=== PATIENT | male | born 1955 | race African-American/Black ===

== ENCOUNTER 2018-03-17 16:48 | Emergency (ER) | payer OTHER ==
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
--- NOTE | 2018-03-17 17:57 | RAD ---
CERVICAL SPINE THREE VIEWS: COMPARISON: None. FINDINGS: There is no prevertebral soft tissue swelling. The cervical spine is adequately demonstrated from th e C1 through the C7-T1 disk space. Vertebral body heights are maintained. There is no fracture. Th ere is 2.5 mm of retrolisthesis of C4 upon C5. There is 1.8 mm of retrolisthesis of C5 upon C6. The re is minimal retrolisthesis of C6 upon C7. There is mild widening of the anterior disk space at C5-C6 and C6-C7. The constellation of findings is presumed to be due to chronic degenerative change. If there is concern for ligamentous injury, MR I can be performed. Currently, the patient does have straightening of normal cervical lordosis. The re is mild degenerative disk disease at C4-C5 and mild degenerative disk disease at C5-C6 and C6-C7. On the open-mouth view, the lateral masses of C1 and C2 articulate appropriately. The odontoid proce ss is intact. On the AP projection, no fractures or malalignment are appreciated. IMPRESSION: 1. Spondylolisthesis and straightening of normal cervical lordosis, which is presumed to be due to p osition and degenerative change. If there is concern for ligamentous injury, MRI can be performed. 2. No evidence of a cervical spine fracture. POS: [facility]
== END 2018-03-17 17:51 | disposition home or self-care (01) ==
LOC: ERS 16:48
DX: M54.2 Cervicalgia (principal); R07.9 Chest pain, unspecified; R51 Headache; R10.13 Epigastric pain; F41.9 Anxiety disorder, unspecified; V49.9XXA Car occupant (driver) (passenger) injured in unspecified traffic accident, initial encounter
CPT/HCPCS: 71046; 72040

== ENCOUNTER 2020-03-21 21:41 | Emergency (ER) | payer BC, OTHER ==
[2020-03-21] MEDS ORDERED: Acetaminophen 500 MG TAB ONE (21:50)
--- NOTE | 2020-03-21 22:33 | RAD ---
Portable frontal chest radiograph: 03/21/2020 COMPARISON: 03/17/2018 HISTORY: Nausea and vomiting FINDINGS: Mild nonspecific increased linear interstitial density noted in the lung bases, left greate r than right. There is no pneumothorax or pleural fluid and there is no focal consolidation or alveolar edema. Ration: Mild increased linear density in the lung bases with no focal consolidation or alveolar edema .
[2020-03-21 22:46] LABS: #Eosinphils 0.1 thou/uL (0.0-0.7); #Lymphocytes 0.4 thou/uL (1.20-3.40); #Monocytes 0.1 thou/uL (0.11-0.59); %Basophils 0.5 % (0.0-1.0); %Eosinophils 0.9 % (0.0-10.0); %Lymphocytes 5.9 % (21.0-51.0); %Monocytes 1.8 % (0.0-10.0); %Neutrophils 90.8 % (42.0-75.0); Hemoglobin 12.6 g/dL (14.0-18.0); Mean Corpuscular HGB CONC 32.3 g/dL (32.0-36.0); Mean Corpuscular Hemoglobin 29.8 pg (27.0-31.0); Mean Corpuscular Volume 92.2 fL (78.0-98.0); Mean Platelet Volume 8.5 fL (7.4-10.4); Platelet Count 124 thou/uL (130-400); RBC Distribution Width 12.1 % (11.5-14.5); Red Blood Cell (RBC) Count 4.23 mill/uL (4.70-6.10); White Blood Cell (WBC) Count 6.6 thou/uL (4.8-10.8)
[2020-03-21 23:07] LABS: ALT (SGPT) 36 U/L (8-55); AST (SGOT) 54 U/L (5-34); Albumin 3.7 g/dL (3.4-4.8); Alkaline Phosphatase 95 U/L (40-110); Anion Gap 13 mmol/L (10-20); BUN (Urea Nitrogen) 17 mg/dL (8.4-25.7); Bilirubin, Total 0.3 mg/dL (0.2-1.2); Calc. Creatinine Clearance 0 mL/min (70-130); Calcium 8.7 mg/dL (7.8-10.44); Carbon Dioxide 26 mmol/L (23-31); Chloride 107 mmol/L (98-107); Estimated GFR-MDRD Greater than 90; Glucose 111 mg/dL (80-115); Lipase 38 U/L (8-78); Potassium 4.1 mmol/L (3.5-5.1); Protein, Total 6.7 g/dL (5.8-8.1); Sodium 142 mmol/L (136-145)
[2020-03-21 23:40] LABS: Bilirubin Negative (Negative); Blood, Urine Negative (Negative); Clarity Clear (Clear); Glucose, Urine (Dipstick) Normal (Negative); Ketone, Urine Negative (Negative); Leukocyte Negative Leu/uL (Negative); Nitrite Negative (Negative); Protein, Urine (Dipstick) Negative (Neg-Trace); Specific Gravity, Urine 1.014 (1.002-1.036); Urobilinogen Normal mg/dL (Less than 2); pH, Urine 7.5 (5.0-9.0)
[2020-03-22 14:03] LABS: SARS-CoV-2 MS2 Positive; SARS-CoV-2 N Gene Negative; SARS-CoV-2 S Gene Negative; SARS-CoV-2 by NAA Not Detected (NotDetected); SARS-CoV-2 orf1ab Negative
== END 2020-03-22 02:09 | disposition home or self-care (01) ==
LOC: ERS 21:41
DX: B34.9 Viral infection, unspecified (principal); R11.2 Nausea with vomiting, unspecified
CPT/HCPCS: 36415; 71045; 80053; 81003; 83690; 84484; 85025; 87040; 87086; 87635; 87804; 93005; U0003

== ENCOUNTER 2020-08-26 04:06 | Emergency (ER) | payer BC | END 2020-08-26 04:32 | disposition home or self-care (01) | LOC: ERS 04:06 | DX: R11.0 Nausea (principal) | CPT/HCPCS: 93005 ==